=== PATIENT | male | born 1955 | race Asian ===

== ENCOUNTER → 2016-07-28 | Outpatient (CLI) | payer OTHER ==
--- NOTE | 2016-07-28 11:28 | DX ---
Chest, Two Views at 1108 hours History: R09.89, cough. Comparison: March 2010 Findings: Cardiac silhouette is within normal range. Alveolar opacity in the left lower lobe consiste nt with pneumonia. Right lung is clear. Tortuous aorta. Impression: 1. Left lower lobe pneumonia. 2. Recommend follow-up until clear.
== END ==
LOC: BMCIMAGING 11:09
PROVIDERS: ATTEND Internal Medicine
DX: J18.1 Lobar pneumonia, unspecified organism (principal)

== ENCOUNTER → 2018-04-22 | Outpatient (CLI) | payer OTHER | LOC: CIMAGING 07:15 | PROVIDERS: ATTEND Internal Medicine | DX: I10 Essential (primary) hypertension (principal) | CPT/HCPCS: 76770-PO ==

== ENCOUNTER → 2018-05-03 | Outpatient (CLI) | payer OTHER | LOC: CIMAGING 07:16 | PROVIDERS: ATTEND Internal Medicine | DX: I10 Essential (primary) hypertension (principal) | CPT/HCPCS: 76770-PO ==